=== PATIENT | female | born 1945 | race Caucasian/White ===

== ENCOUNTER → 2016-09-14 | Outpatient (CLI) | payer MEDICARE, OTHER ==
[~2016-09-14] MED LIST: DOXYCYCLINE HY100 M4 PO
--- NOTE | 2016-09-14 13:18 | CARDIOVASCULAR REPORT ---
"Venous Exam Indications: 729.5 Pain in limb. IMPRESSIONS 1. There is no evidence of significant reflux. 2. No evidence of deep or superficial vein thrombosis involving the veins of the left upper extremity History: Risk factors: Malignancy: Breast. left mastectomy Left upper extremity venous duplex. Doppler flow study including spectral analysis, color and lagos scale imaging. Location: Vascular laboratory. Patient status: Outpatient. CRITICAL FINDINGS - Reported to: Krystyna - Read back and verified. - 09-14-16 [id number] - Negative Tables: Venous flow and imaging: + + + |Location |Flow properties | + + + |Left internal jugular|Normal phasicity; spontaneous; compressible | + + + |Left subclavian |Normal phasicity; spontaneous; normal | | |augmentation; compressible | + + + |Left axillary |Normal phasicity; spontaneous; normal | | |augmentation; compressible | + + + |Left brachial |Normal phasicity; spontaneous; normal | | |augmentation; compressible | + + + |Left cephalic |Normal phasicity; spontaneous; normal | | |augmentation; compressible | + + + |Left basilic |Normal phasicity; spontaneous ; normal | | |augmentation; compressible | + + + |Left radial |Compressible | + + + |Left ulnar |Compressible | + + + (Report amended ) Electronically signed by: Allen Ortega [id number]"
--- NOTE | 2016-09-14 13:18 | CARDIOVASCULAR REPORT ---
"Venous Exam Indications: 729.5 Pain in limb. IMPRESSIONS 1. There is no evidence of significant reflux. 2. No evidence of deep or superficial vein thrombosis involving the veins of the left upper extremity History: Risk factors: Malignancy: Breast. left mastectomy Left upper extremity venous duplex. Doppler flow study including spectral analysis, color and lagos scale imaging. Location: Vascular laboratory. Patient status: Outpatient. CRITICAL FINDINGS - Reported to: Krystyna - Read back and verified. - 09-14-16 [id number] - Negative Tables: Venous flow and imaging: + + + |Location |Flow properties | + + + |Left internal jugular|Normal phasicity; spontaneous; compressible | + + + |Left subclavian |Normal phasicity; spontaneous; normal | | |augmentation; compressible | + + + |Left axillary |Normal phasicity; spontaneous; normal | | |augmentation; compressible | + + + |Left brachial |Normal phasicity; spontaneous; normal | | |augmentation; compressible | + + + |Left cephalic |Normal phasicity; spontaneous; normal | | |augmentation; compressible | + + + |Left basilic |Normal phasicity; spontaneous ; normal | | |augmentation; compressible | + + + |Left radial |Compressible | + + + |Left ulnar |Compressible | + + + (Report amended ) Electronically signed by: Allen Ortega [id number]"
== END ==
LOC: RT 12:27
DX: R60.0 Localized edema (principal)